=== PATIENT | male | born 1990 | race Hispanic/Latino ===

== ENCOUNTER 2021-12-14 02:46 | Emergency (ER) | payer SELFPAY ==
[2021-12-14] MEDS ORDERED: LIDOCAINE 1% MPF 30 ML VIAL ONE (03:30)
[2021-12-14 03:50] LABS: Absolute Lymphocytes (CBC) 1.4 K/uL (0.7-4.9); Lymphocytes % 14.7 % (15.3-44.8); MCV 89.2 fL (80-100); MPV 6.6 fL (7.6-11.3); RBC Red Blood Cell Count 4.82 M/uL (4.33-5.43)
[2021-12-14 04:00] LABS: Potassium 3.6 mmol/L (3.5-5.1)
[2021-12-14] MEDS ORDERED: ACETAMINOPHEN 500 MG TAB ONE (04:31)
--- NOTE | 2021-12-14 06:18 | RAD REPORT ---
EXAM DESCRIPTION: RAD - Thoracic Spine Single View - 12/14/2021 6:03 am CLINICAL HISTORY: Back pain COMPARISON: None. FINDINGS: Exam was requested as a single AP projection of the thoracic spine. These are normal in height. No lytic, sclerotic or expansile change identifiable. There are 12 paire d ribs with no abnormality of the medial aspects. No paraspinal masses are identified. No disc space narrowing. IMPRESSION: Negative single-view thoracic spine examination.
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
[2021-12-14] MEDS ORDERED: IBUPROFEN 400 MG TAB ONE (07:27)
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
[2021-12-15 17:23] VITALS: TEMP 98.2
[2021-12-15 17:57] VITALS: BP 115/77; O2SAT 95
== END 2021-12-14 07:27 | disposition home or self-care (01) ==
LOC: ER 02:46
PROC: 0JQ10ZZ Repair Face Subcutaneous Tissue and Fascia, Open Approach (ICD-10-PCS; principal; 2021-12-14)
DX: S01.112A Laceration without foreign body of left eyelid and periocular area, initial encounter (principal); F10.929 Alcohol use, unspecified with intoxication, unspecified; S09.90XA Unspecified injury of head, initial encounter; R22.0 Localized swelling, mass and lump, head
CPT/HCPCS: 36415; 70450; 70486; 71045; 72020; 72125; 76377; 80048; 80320; 85025; 99284